=== PATIENT | male | born 1945 | race Caucasian/White ===

== ENCOUNTER 2017-04-16 10:46 | Observation (INO) | payer MEDICARE, OTHER ==
[~2017-04-16] VITALS: Ht 185.4 cm; Wt 83.0 kg
[2017-04-16] VITALS (8 sets, daily range): BP systolic 107–166; BP diastolic 60–92; PULSE 65–84; RESP 16–18; TEMP 98.1–98.3; O2SAT 93–99
[~2017-04-16 10:46] MED LIST: B-COTAB41 PO; COEN100T PO; GINK60TA2 PO; MULT-65 PO; NIAC500T34 PO; OMEG600C2 PO
[2017-04-16] MEDS ORDERED: NIAC500T5 PO (11:34)
[2017-04-16] MEDS ORDERED: CO Q100C9 (11:34)
[2017-04-16] MEDS ORDERED: FISHCAP4 PO (11:34)
[2017-04-16] MEDS ORDERED: MULTTAB67 PO (11:34)
[2017-04-16] MEDS ORDERED: LACTCAP8 PO (11:34)
[2017-04-16] MEDS ORDERED: SODIUM CHLOR 0.9% 1000 ML INJ 1,000 ML IV SCH (11:35)
[2017-04-16] MEDS ORDERED: MORPHINE SULFATE 4 MG/ML INJ IV PUSH ONE ×2 (11:45→14:15)
[2017-04-16] MEDS ORDERED: ONDANSETRON HCL 4 MG/2 ML VIAL IV PUSH ONE ×2 (11:45→12:36)
[2017-04-16] MEDS ORDERED: LIDOCAINE HCL 1% 50 ML VIAL ONE (12:00)
[2017-04-16] MEDS ORDERED: GLYCOPYRROLATE 0.4 MG/2 ML VIAL IV ONE (12:00)
[2017-04-16] MEDS ORDERED: DEXAMETHASONE SOD PHOS 4 MG/ML VIAL IV ONE (12:00)
[2017-04-16] MEDS ORDERED: ROCURONIUM INJ 50 MG/5 ML SYRINGE IV PUSH ONE (12:00)
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
[2017-04-16] MEDS ORDERED: LACTATED RINGER'S 1000 ML INJ 1,000 ML IV ONE (12:36)
[2017-04-16] MEDS ORDERED: NEOSTIGMINE 3 MG/3 ML SYR IV ONE (12:36)
[2017-04-16] MEDS ORDERED: PHENYLEPH/NS 1000 MCG/10 ML SYR IV ONE (12:36)
[2017-04-16] MEDS ORDERED: PROPOFOL 200 MG/20 ML AMP IV ONE (12:36)
[2017-04-16 12:44] LABS: BLOOD, URINE NEG (NEG); GLUCOSE,URINE NEG (NEG); KETONE, URINE NEG (NEG); NITRITE,URINE NEG (NEG)
[2017-04-16 12:47] LABS: AUTOMATED NEUTROPHIL # 11.3 TH/MM3 (1.8-7.7); BASOPHIL # 0.1 TH/MM3 (0-0.2); BASOPHIL % 0.6 % (0.0-2.0); EOSINOPHIL % 0.3 % (0.0-4.0); HEMATOCRIT 39.6 % (39.0-51.0); LYMPHOCYTE # 1.4 TH/MM3 (1.0-4.8); MEAN CELL VOLUME 63.6 FL (80.0-100.0); MEAN CORPUSCULAR HEMOGLOBIN 19.9 PG (27.0-34.0); MEAN CORPUSCULAR HGB CONC 31.3 % (32.0-36.0); MONO % 7.2 % (0.0-8.0); NEUT % 81.9 % (16.0-70.0); PLATELET COUNT 124 TH/MM3 (150-450); RED BLOOD COUNT 6.22 MIL/MM3 (4.50-5.90); RED CELL DISTRIBUTION WIDTH 15.3 % (11.6-17.2); WHITE BLOOD COUNT 13.8 TH/MM3 (4.0-11.0)
[2017-04-16 13:02] LABS: COMMENT (UR) CULT NOT INDICATED; CULTURE IF INDICATED CULT NOT INDICATED; METHOD OF COLLECTION CLEAN CATCH; RBC, URINE 0-3 /hpf (0-3); SQUAMOUS EPITHELIAL CELL URINE 0-5 /hpf (0-5); URINE COLOR YELLOW (YELLW/STRAW)
[2017-04-16 13:04] LABS: CHLORIDE 103 MEQ/L (98-107); HEMO FLAGS AUTO DIFF; SODIUM (NA) 135 MEQ/L (136-145)
[2017-04-16 13:08] LABS: ANION GAP 7 MEQ/L (5-15); BICARBONATE 25.3 MEQ/L (21.0-32.0); BLOOD UREA NITROGEN 18 MG/DL (7-18)
[2017-04-16 13:11] LABS: ALT (GPT) 55 U/L (12-78); AST (GOT) 31 U/L (15-37); GLOMERULAR FILTRATION RATE 60 ML/MIN (>89)
[2017-04-16 13:13] LABS: TOTAL BILIRUBIN ADULT 0.8 MG/DL (0.2-1.0)
[2017-04-16 13:14] LABS: ALKALINE PHOSPHATASE 48 U/L (45-117)
[2017-04-16] MEDS ORDERED: IOHEXOL 350 MG/ML 10 ML VIAL (for RAD DIAG) IVCONTRAST ONE (13:28)
--- NOTE | 2017-04-16 13:45 | RADRPT ---
EXAM DATE/TIME: 04/16/2017 13:25 CORRECTION Corrected on: April 16, 2017; changed exam date from April 17, 2017 13:05 to April 16 13:25 [place] COMPARISON: No previous studies available for comparison. INDICATIONS : Bilateral abdominal pain that is burning sensation since last night. IV CONTRAST: 93 cc Omnipaque 350 (iohexol) IV ORAL CONTRAST: No oral contrast ingested. RADIATION DOSE: 11.21 CTDIvol (mGy) MEDICAL HISTORY : None SURGICAL HISTORY : Bilateral abdominal hernia repair ENCOUNTER: Initial ACUITY: 1 day PAIN SCALE: 8/10 LOCATION: Bilateral lower quadrant TECHNIQUE: Volumetric scanning of the abdomen and pelvis was performed. Using automated exposure control and ad justment of the mA and/or kV according to patient size, radiation dose was kept as low as reasonably achievable to obtain optimal diagnostic quality images. DICOM format image data is available electro nically for review and comparison. FINDINGS: LOWER LUNGS: Minimal by basilar ground glass opacities consistent with atelectasis. LIVER: Mild diffusely decreased hepatic density without significant volume loss, intrahepatic ductal dilatat ion, or focal mass. SPLEEN: Normal size without lesion. PANCREAS: Within normal limits. KIDNEYS: Kidneys demonstrate symmetrical enhancement without evidence of hydronephrosis or radiopaque renal ca lculi. Probable focal parenchymal scarring in the anterior right superior. ADRENAL GLANDS: Within normal limits. VASCULAR: There is no aortic aneurysm. BOWEL/MESENTERY: Examination is abnormal. The appendix is dilated measuring up to 11 mm with moderate periappendiceal inflammatory stranding. No drainable focal fluid collection. No significant free air. Moderate sigmoi d diverticulosis without significant inflammatory change. Remainder of the bowel is unremarkable. ABDOMINAL WALL: Within normal limits. RETROPERITONEUM: There is no lymphadenopathy. BLADDER: There are 2 calcified densities in the bladder likely reflecting bladder calculi. There is an 8mm tg cification posteriorly and dependently and a second 4 mm calcification near the base. No significant bladder wall thickening. REPRODUCTIVE: Prostate is nonspecifically enlarged. INGUINAL: Per surgical features of bilateral angle hernia repair MUSCULOSKELETAL: Within normal limits for patient age. CONCLUSION: 1. Findings consistent with acute appendicitis without evidence for rupture or drainable fluid collec tion at this time. 2. 8mm and 4 mm calcified densities in the bladder consistent with bladder calculi. No evidence for o bstructive uropathy. 3. Sigmoid diverticulosis. Findings were personally discussed with Dr. Taylor. Hakeem Lester MD on April 16, 2017 at 13:35 Board Certified Radiologist. This report was verified electronically. on April 16, 2017 at 16:36 Board Certified Radiologist. This report was verified electronically.
[2017-04-16 13:50] LABS: PLATELET ESTIMATE SMEAR NORMAL (NORMAL); PLATELET MORPHOLOGY NORMAL (NORMAL); SCAN/DIFF AUTO DIFF CONFIRMED
[2017-04-16] MEDS ORDERED: PIPERACIL-TAZO 3.375 GM PREMIX 50 ML IV ONE (14:00)
[2017-04-16] MEDS: AMPICILLIN-SULBACTAM INJ 1,500 MG in SODIUM CHLORIDE 0.9% INJ 100 ML IV SCH ×2 (14:30→22:33)
[2017-04-16] MEDS ORDERED: MORPHINE SULFATE 4 MG/ML INJ IV PUSH PRN (14:30)
[2017-04-16] MEDS ORDERED: ACETAMINOPHEN 325 MG TAB PO PRN (14:30)
[2017-04-16] MEDS ORDERED: ONDANSETRON HCL 4 MG/2 ML VIAL IV PRN (14:30)
[2017-04-16] MEDS ORDERED: NS + KCL 20 MEQ INJ 1,000 ML IV SCH (14:30)
[2017-04-16] MEDS ORDERED: SODIUM CHLORIDE 0.9% FLUSH 10 ML FLUSH IVF PRN (14:30)
[2017-04-16] MEDS ORDERED: ACETAMINOPHEN 650 MG SUPP PR PRN (14:30)
[2017-04-16] MEDS ORDERED: ACETAMINOPHEN 1000 MG/100 ML 100 ML IV ONE (15:46)
[2017-04-16] MEDS ORDERED: MIDAZOLAM HCL 2 MG/2 ML VIAL ONE (15:46)
[2017-04-16] MEDS ORDERED: FAMOTIDINE 20 MG/2 ML VIAL ONE (15:46)
[2017-04-16] MEDS ORDERED: BUPIVACAINE/EPINEPHRINE 0.25% 50 ML VIAL ONE (16:23)
[2017-04-16] MEDS ORDERED: ACETAMINOPHEN/HYDROcodone 325 MG/5 MG TAB PO PRN (17:30)
[2017-04-16] MEDS ORDERED: MORPHINE SULFATE 4 MG/ML INJ IV PRN (17:30)
[2017-04-16] MEDS ORDERED: SODIUM CHLORIDE 0.9% FLUSH 10 ML FLUSH IV FLUSH PRN (17:30)
[2017-04-16] MEDS ORDERED: DO NOT ADM ANY ANTICOAGULANT DRUGS PRN (17:30)
[2017-04-16] MEDS: SODIUM CHLOR 0.9% 1000 ML INJ 1,000 ML IV SCH (17:44)
[2017-04-16] MEDS ORDERED: *ONDANSETRON 4 MG VIAL PERIprocedural Use ONLY ONE (17:48)
[2017-04-16] MEDS ORDERED: ACETAMINOPHEN 650 MG SUPP RECTAL PRN (18:15)
[2017-04-16] MEDS: ACETAMINOPHEN 1000 MG/100 ML VIAL IV SCH (18:50)
[2017-04-16] MEDS: PIPERACIL-TAZO 3.375 GM PREMIX 50 ML IV SCH (20:59)
[2017-04-16] MEDS: SODIUM CHLORIDE 0.9% FLUSH 10 ML FLUSH IV FLUSH SCH (22:32)
[2017-04-17] MEDS: ACETAMINOPHEN 1000 MG/100 ML VIAL IV SCH ×2 (00:01→06:32)
[2017-04-17] MEDS: PIPERACIL-TAZO 3.375 GM PREMIX 50 ML IV SCH ×2 (02:03→08:42)
[2017-04-17] MEDS: AMPICILLIN-SULBACTAM INJ 1,500 MG in SODIUM CHLORIDE 0.9% INJ 100 ML IV SCH ×2 (03:24→09:13)
[2017-04-17] MEDS: SODIUM CHLOR 0.9% 1000 ML INJ 1,000 ML IV SCH (03:29)
[2017-04-17 04:00] VITALS: BP_SYST 89; BP_SYST 99; BP_DIAS 54; BP_DIAS 58; PULSE 62; RESP 17; TEMP 98.4; O2SAT 96
[2017-04-17 08:12] VITALS: BP 107/62; PULSE 63; RESP 16; TEMP 98.1; O2SAT 95
[2017-04-17] MEDS: SODIUM CHLORIDE 0.9% FLUSH 10 ML FLUSH IV FLUSH SCH (08:45)
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
--- NOTE | 2017-04-17 14:14 | EKG ---
Date Performed: 04/16/2017 Time Performed: 10:51:42 PTAGE: 71 years EKG: Sinus rhythm LOW QRS VOLTAGE IN PRECORDIAL LEADS BORDERLINE ECG NO PREVIOUS TRACING DOCTOR: Loni Sequeira Interpretating Date/Time 04/17/2017 14:08:06
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
== END 2017-04-17 11:42 | disposition home or self-care (01) ==
LOC: PHEFT 10:46 → PHEDA 14:19 → HPAC 15:35 → NEPGCP 18:41
PROVIDERS: ADMIT Surgery; ATTEND Surgery
DX: K35.80 Unspecified acute appendicitis (principal); R94.31 Abnormal electrocardiogram [ECG] [EKG]
CPT/HCPCS: 00840; 44970; 74177; 80053; 81001; 83605; 83690; 85025; 88304; 93005; 96361; 96365; 96366; 96374; 96375; 96376; 99285; G0378; J0131; J0295; J1100; J2250; J2270; J2370; J2405; J2543; J2710; J3010; J7030; J7120; Q9967